=== PATIENT | female | born 1995 | race Caucasian/White ===

== ENCOUNTER 2023-04-05 15:47 | Emergency (ER) | payer OTHER | END 2023-04-05 17:10 | disposition home or self-care (01) | LOC: LB.ED 15:47 | DX: S93.402A Sprain of unspecified ligament of left ankle, initial encounter (principal); Z88.8 Allergy status to other drugs, medicaments and biological substances; X50.1XXA Overexertion from prolonged static or awkward postures, initial encounter | CPT/HCPCS: 99283 ==